=== PATIENT | male | born 1980 ===

== ENCOUNTER 2016-12-04 18:26 | Emergency (ER) | payer BC ==
[2016-12-04 18:45] VITALS: BP 142/98
--- NOTE | 2016-12-04 19:39 | EDM.PDOC ---
ED HPI GENERAL MEDICAL PROBLEM - General Chief Complaint: Upper Extremity Injury/Pain Stated Complaint: POSS BREAK R HAND Time Seen by Provider: 12/04/16 19:01 Source of Information: Reports: Patient History Limitations: Reports: No Limitations - History of Present Illness INITIAL COMMENTS - FREE TEXT/NARRATIVE: This is a 36-year-old male. Yesterday evening he was working on his truck and a wrench slipped and he slammed his right hand into a piece of metal. He complains of pain in the right hand on the third fourth and fifth MP joints. There is much swelling of the right hand as well. He denies any wrist injury or any other acute problems. He is here because of the swelling and the continued pain because he thinks he broke his hand. Right Hand Pain Score (Numeric/FACES): 7 - Related Data Allergies Allergy/AdvReac Type Severity Reaction Status Date / Time IV contrast Allergy Anaphylactic Uncoded 12/04/16 18:46 Shock Home Meds: Home Meds . [No Known Home Meds] 12/04/16 [History] Past Medical History - Past Health History Medical/Surgical History: Denies Medical/Surgical History Social & Family History - Tobacco Use Smoking Status *Q: Current Every Day Smoker Years of Tobacco use: 10 Packs/Tins Daily: 1 - Recreational Drug Use Recreational Drug Use: No Review of Systems - Review of Systems Review Of Systems: See Below Constitutional: Reports: No Symptoms Eyes: Reports: No Symptoms Ears: Reports: No Symptoms Nose: Reports: No Symptoms Mouth/Throat: Reports: No Symptoms Respiratory: Reports: No Symptoms Cardiovascular: Reports: No Symptoms GI/Abdominal: Reports: No Symptoms Genitourinary: Reports: No Symptoms Musculoskeletal: Reports: Other (As per history of present illness) Skin: Reports: No Symptoms Neurological: Reports: No Symptoms Psychiatric: Reports: No Symptoms ED EXAM, GENERAL - Physical Exam Exam: See Below Exam Limited By: No Limitations General Appearance: Alert, WD/WN, No Apparent Distress Ears: Normal External Exam Nose: Normal Inspection Throat/Mouth: Normal Lips, Normal Voice, No Airway Compromise Head: Normocephalic Neck: Supple Respiratory/Chest: No Respiratory Distress Back Exam: Full Range of Motion Extremities: Other (Right hand shows swelling over the third fourth and fifth metatarsals and they appear that the MP joints might be slightly reduced, there is lots of swelling so much so he is not able to make a fist, he does have neurovascular intact in all 5 digits his right wrist is without pain or injury there are no other acute upper extremity injuries noted) Neurological: Alert, Oriented Psychiatric: Normal Affect, Normal Mood Skin Exam: Warm, Dry Course - Vital Signs Last Recorded V/S: Last Vital Signs Temp 98.0 F 12/04/16 18:43 Pulse 89 12/04/16 18:43 Resp 16 12/04/16 18:43 BP 142/98 H 12/04/16 18:43 Pulse Ox 96 12/04/16 18:43 - Orders/Labs/Meds Orders: Active Orders 24 hr Category Date Time Status Hand Comp Min 3V Rt [CR] Stat Exams 12/04/16 19:08 Taken - Radiology Interpretation Free Text/Narrative:: X-ray of the right hand shows no fractures that I can see. - Re-Assessments/Exams Free Text/Narrative Re-Assessment/Exam: 12/04/16 20:32 I spoke to the patient regarding the x-ray results. I explained to him that the swelling will at least take a week to go down and the contusion to the bones will probably take 2-4 weeks. We will wrap his right hand with an Good wrap and I will suggest some [id number] medications to help with the swelling and the pain. Departure - Departure Time of Disposition: 20:32 Disposition: Home, Self-Care 01 Condition: Good Clinical Impression: Contusion of right hand Qualifiers: Encounter type: initial encounter Qualified Code(s): S60.221A - Contusion of right hand, initial encounter - Discharge Information Referrals: PCP,None [Primary Care Provider] - Forms: ED Department Discharge Additional Instructions: Use the Good wrap faithfully since it will help with the swelling, ice it down as much as possible over the next 24 hours after that you may start using alternating ice and heat and always and with ice, continue to move your fingers don't lift them get stiff, did some Aleve and take 2 tablets twice a day and will take the edge off of any the soreness and pain, you may also use some ibuprofen but Aleve works better than ibuprofen, follow-up your family doctor in the next week to 10 days for recheck or return to the ER if needed - My Orders Last 24 Hours: My Active Orders 12/04/16 19:08 Hand Comp Min 3V Rt [CR] Stat - Assessment/Plan Last 24 Hours: My Active Orders 12/04/16 19:08 Hand Comp Min 3V Rt [CR] Stat
--- NOTE | 2016-12-06 18:00 | CR ---
Right hand: Four views of the right hand were obtained. Comparison: No previous study. Findings: Soft tissue swelling is identified. Joint spaces are maintained. No acute fracture, dislocation or other bony abnormality is seen. Impression: 1. Soft tissue swelling. 2. No bony abnormality is identified on right hand exam. Diagnostic code #2
== END 2016-12-04 20:40 | disposition home or self-care (01) ==
LOC: JD.ED 18:26
DX: S60.221A Contusion of right hand, initial encounter (principal); Z91.041 Radiographic dye allergy status; F17.210 Nicotine dependence, cigarettes, uncomplicated; W22.8XXA Striking against or struck by other objects, initial encounter
CPT/HCPCS: 73130-26-RT; 73130-RT; 99283; 99284

== ENCOUNTER 2019-04-07 17:57 | Emergency (ER) | payer BC ==
[2019-04-07] MEDS ORDERED: Sodium Chloride 0.9% 10 ML Syringe FLUSH PRN (18:09)
[2019-04-07] MEDS ORDERED: diphenhydrAMINE 50 MG/ML SDV IVPUSH ONE (18:11)
[2019-04-07] MEDS ORDERED: Famotidine 20 MG/2 ML SDV IVPUSH ONE (18:11)
[2019-04-07] MEDS ORDERED: methylPREDNISolone Sodium Succinate 125 MG/2 ML SDV IVPUSH ONE (18:11)
[2019-04-07] MEDS ORDERED: Sodium Chloride 0.9% 1,000 ML IV SCH (18:15)
--- NOTE | 2019-04-07 18:35 | EDM.PDOC ---
ED HPI GENERAL MEDICAL PROBLEM - General Chief Complaint: Exposure to Heat or Cold Stated Complaint: [facility] Time Seen by Provider: 04/07/19 18:06 Source of Information: Reports: Patient, EMS History Limitations: Reports: No Limitations - History of Present Illness INITIAL COMMENTS - FREE TEXT/NARRATIVE: The patient presents by [facility] for an allergic reaction and cold exposure. The patient ate some peanut butter crackers by mistake. He is allergic to them. He was trying to get his truck out of the snow. He then felt lightheaded like he was going to pass out. That has happened before when he had an allergic reaction. He laid down in the snow avoid falling. He then passed out and his called EMS. He has no rash. He feels cold with a temp of 96. He has no shortness of breath and it does not feel like he has any trouble swallowing or any lumps in his throat. He has no chest pain or shortness of breath. He did not drink any alcohol today. Onset: Gradual Duration: Minutes: Severity: Moderate Improves with: Reports: None Worsens with: Reports: None Associated Symptoms: Reports: No Other Symptoms - Related Data Allergies Allergy/AdvReac Type Severity Reaction Status Date / Time peanut Allergy Anaphylactic Verified 04/07/19 18:04 Shock IV contrast Allergy Anaphylactic Uncoded 04/07/19 18:04 Shock Home Meds: Home Meds predniSONE [Prednisone] 40 mg PO DAILY #10 tablet 04/07/19 [Rx] Past Medical History - Past Health History Medical/Surgical History: Denies Medical/Surgical History Social & Family History - Tobacco Use Smoking Status *Q: Current Every Day Smoker Years of Tobacco use: 6 Packs/Tins Daily: 1 - Caffeine Use Caffeine Use: Reports: Coffee - Recreational Drug Use Recreational Drug Use: No ED ROS GENERAL - Review of Systems Review Of Systems: See Below Constitutional: Reports: No Symptoms HEENT: Reports: No Symptoms Respiratory: Reports: No Symptoms Cardiovascular: Reports: No Symptoms Endocrine: Reports: No Symptoms GI/Abdominal: Reports: No Symptoms : Reports: No Symptoms ED EXAM, GENERAL - Physical Exam Exam: See Below Exam Limited By: No Limitations General Appearance: Alert, No Apparent Distress Ears: Normal External Exam Nose: Normal Inspection Throat/Mouth: Normal Inspection Head: Atraumatic, Normocephalic Neck: Normal Inspection Respiratory/Chest: No Respiratory Distress, Lungs Clear, Normal Breath Sounds Cardiovascular: Regular Rate, Rhythm, No Edema, No Murmur GI/Abdominal: Soft, Non-Tender, No Organomegaly, No Mass Back Exam: Normal Inspection Extremities: Normal Inspection EKG INTERPRETATION EKG Date: 04/07/19 Time: 18:51 Rhythm: NSR Rate (Beats/Min): 95 [place]: Normal P-Wave: Present QRS: Normal ST-T: Normal QT: Normal Course - Vital Signs Last Recorded V/S: Last Vital Signs Temp 96.9 F 04/07/19 18:00 Pulse 98 04/07/19 18:00 Resp 18 04/07/19 18:00 BP 173/147 H 04/07/19 18:00 Pulse Ox 100 04/07/19 18:00 - Orders/Labs/Meds Orders: Active Orders 24 hr Category Date Time Status Cardiac Monitoring [RC] . DIRECTED Care 04/07/19 18:09 Active EKG Documentation Completion [RC] STAT Care 04/07/19 18:10 Active Peripheral IV Care [RC] . DIRECTED Care 04/07/19 18:10 Active CBC WITH AUTO DIFF [HEME] Stat Lab 04/07/19 18:27 Results COMPREHENSIVE METABOLIC PN,CMP [CHEM] Stat Lab 04/07/19 18:27 Received TROPONIN I [CHEM] Stat Lab 04/07/19 18:27 Received Sodium Chloride 0.9% [Normal Saline] 1,000 ml Med 04/07/19 18:15 Active IV .BOLUS Sodium Chloride 0.9% [Saline Flush] Med 04/07/19 18:09 Active 10 ml FLUSH ASDIRECTED PRN Peripheral IV Insertion Adult [OM.PC] Stat Oth 04/07/19 18:09 Ordered Medication Orders Sodium Chloride (Normal Saline) 1,000 mls @ 1,000 mls/hr IV .BOLUS CARLENE Last Admin: 04/07/19 18:32 Dose: 1,000 mls/hr Sodium Chloride (Saline Flush) 10 ml FLUSH ASDIRECTED PRN PRN Reason: Keep Vein Open Last Admin: 04/07/19 18:33 Dose: 10 ml Labs: Laboratory Tests 04/07/19 Range/Units 18:27 WBC 11.00 H (4.23-9.07) K/mm3 RBC 4.72 (4.63-6.08) M/mm3 Hgb 15.5 (13.7-17.5) gm/dl Hct 45.2 (40.1-51.0) % MCV 95.8 H (79.0-92.2) fl MCH 32.8 H (25.7-32.2) pg MCHC 34.3 (32.2-35.5) g/dl RDW Std Deviation 43.3 (35.1-43.9) fL Plt Count 422 H D (163-337) K/mm3 MPV 8.9 L (9.4-12.3) fl Neut % (Auto) 79.7 H (34.0-67.9) % Lymph % (Auto) 16.2 L (21.8-53.1) % Dukes % (Auto) 3.3 L (5.3-12.2) % Eos % (Auto) 0.4 L (0.8-7.0) Baso % (Auto) 0.1 (0.1-1.2) % Neut # (Auto) 8.78 H (1.78-5.38) K/mm3 Lymph # (Auto) 1.78 (1.32-3.57) K/mm3 Dukes # (Auto) 0.36 (0.30-0.82) K/mm3 Eos # (Auto) 0.04 (0.04-0.54) K/mm3 Baso # (Auto) 0.01 (0.01-0.08) K/mm3 Meds: Medications Generic Name Dose Route Start Last Admin Trade Name Freq PRN Reason Stop Dose Admin Sodium Chloride 1,000 mls @ 1,000 mls/hr 04/07/19 18:15 04/07/19 18:32 Normal Saline IV 1,000 mls/hr .BOLUS CARLENE Administration Sodium Chloride 10 ml 04/07/19 18:09 04/07/19 18:33 Saline Flush FLUSH 10 ml ASDIRECTED PRN Administration Keep Vein Open Discontinued Medications Generic Name Dose Route Start Last Admin Trade Name Freq PRN Reason Stop Dose Admin Diphenhydramine HCl 50 mg 04/07/19 18:11 04/07/19 18:32 Benadryl IVPUSH 04/07/19 18:12 50 mg ONETIME ONE Administration Famotidine 20 mg 04/07/19 18:11 04/07/19 18:32 Pepcid IVPUSH 04/07/19 18:12 20 mg ONETIME ONE Administration Methylprednisolone Sodium Succinate 125 mg 04/07/19 18:11 04/07/19 18:33 Solu-Medrol IVPUSH 04/07/19 18:12 125 mg ONETIME ONE Administration - Re-Assessments/Exams Free Text/Narrative Re-Assessment/Exam: 04/07/19 18:35 I ordered an IV NS, labs, EKG, solu-medrol 125mg IV, benadryl 50mg IV and pepcid 20mg IV. 04/07/19 19:03 His EKG shows a NSR with no acute changes. His WBC is slightly elevated at 11. 04/07/19 19:05 He is feeling good. I will discharge him home. Departure - Departure Time of Disposition: 19:10 Disposition: Home, Self-Care 01 Condition: Good Clinical Impression: Allergic reaction Qualifiers: Encounter type: initial encounter Qualified Code(s): T78.40XA - Allergy, unspecified, initial encounter Syncope Qualifiers: Syncope type: unspecified Qualified Code(s): R55 - Syncope and collapse - Discharge Information *PRESCRIPTION DRUG MONITORING PROGRAM REVIEWED*: Not Applicable *COPY OF PRESCRIPTION DRUG MONITORING REPORT IN PATIENT ANTHONY: Not Applicable Prescriptions: predniSONE [Prednisone] 40 mg PO DAILY #10 tablet Referrals: PCP,None [Primary Care Provider] - Janusz Lazo PA-C [Physician Webbing Inspector] - 1 Week Forms: ED Department Discharge Additional Instructions: Take prednisone 40mg daily for 5 days. Take pepcid 20mg daily. Take benadryl every 6 hours as needed for any allergic symptoms like a rash, shortness of breath and scratchy throat. Please return if you are worse. Sepsis Event Note - Evaluation Sepsis Screening Result: No Definite Risk - Focused Exam Vital Signs: Vital Signs Temp Pulse Resp BP Pulse Ox 04/07/19 18:00 96.9 F 98 18 173/147 H 100 Date Exam was Performed: 04/07/19 Time Exam was Performed: 19:05 - My Orders Last 24 Hours: My Active Orders 04/07/19 18:09 Cardiac Monitoring [RC] . DIRECTED Sodium Chloride 0.9% [Saline Flush] 10 ml FLUSH ASDIRECTED PRN Peripheral IV Insertion Adult [OM.PC] Stat 04/07/19 18:10 EKG Documentation Completion [RC] STAT Peripheral IV Care [RC] . DIRECTED 04/07/19 18:15 Sodium Chloride 0.9% [Normal Saline] 1,000 ml IV .BOLUS 04/07/19 18:27 CBC WITH AUTO DIFF [HEME] Stat COMPREHENSIVE METABOLIC PN,CMP [CHEM] Stat TROPONIN I [CHEM] Stat - Assessment/Plan Last 24 Hours: My Active Orders 04/07/19 18:09 Cardiac Monitoring [RC] . DIRECTED Sodium Chloride 0.9% [Saline Flush] 10 ml FLUSH ASDIRECTED PRN Peripheral IV Insertion Adult [OM.PC] Stat 04/07/19 18:10 EKG Documentation Completion [RC] STAT Peripheral IV Care [RC] . DIRECTED 04/07/19 18:15 Sodium Chloride 0.9% [Normal Saline] 1,000 ml IV .BOLUS 04/07/19 18:27 CBC WITH AUTO DIFF [HEME] Stat COMPREHENSIVE METABOLIC PN,CMP [CHEM] Stat TROPONIN I [CHEM] Stat
[2019-04-07 19:47] VITALS: BP 119/70; PULSE 91
== END 2019-04-07 19:43 | disposition home or self-care (01) ==
LOC: JD.ED 17:57
DX: T78.40XA Allergy, unspecified, initial encounter (principal); R55 Syncope and collapse; F17.210 Nicotine dependence, cigarettes, uncomplicated; Z79.899 Other long term (current) drug therapy; Z91.010 Allergy to peanuts; Z91.041 Radiographic dye allergy status
CPT/HCPCS: 36415; 80053; 84484; 85025; 93005; 96374; 96375; 99283; J1200; J2930; J3490; J7030; 93010; 99284